=== PATIENT | female | born 1990 | race Caucasian/White ===

== ENCOUNTER 2018-06-03 23:47 | Emergency (ER) | payer OTHER ==
[~2018-06-03] VITALS: Ht 162.6 cm; Wt 113.4 kg
[2018-06-03] MEDS ORDERED: GRAPESEED1 ML SUBLING (23:52)
[2018-06-03] MEDS ORDERED: UNICOMPLEX M TA1 TA1 PO (23:52)
[2018-06-04] MEDS ORDERED: NORCO 5-325 TA1 EACH PO (02:23)
[2018-06-04] MEDS ORDERED: NAPROSYN500 MG PO (02:23)
[2018-06-04] MEDS ORDERED: SENNA-DOCUSATE1 EAC1 PO (02:23)
[2018-06-04] MEDS ORDERED: NORFLEX100 MG PO (02:23)
[2018-06-04 02:34] VITALS: BP 117/69
== END 2018-06-04 02:38 | disposition home or self-care (01) ==
LOC: ER 23:47
DX: R07.81 Pleurodynia (principal)